=== PATIENT | male | born 1955 | race Caucasian/White ===

== ENCOUNTER 2021-12-25 19:35 | Emergency (ER) | payer MEDICARE, MEDICAID ==
[~2021-12-25] VITALS: Ht 182.9 cm; Wt 108.9 kg
--- NOTE | 2021-12-25 19:47 | NUR ---
Dr. Castillo in for [facility].
[2021-12-25] MEDS ORDERED: HYDROMORPHONE 1 MG/1 ML DISP.SYRIN IV ONE ×3 (20:00→23:00)
[2021-12-25] MEDS ORDERED: ONDANSETRON 4 MG/2 ML VIAL IV ONE (20:00)
[2021-12-25] MEDS ORDERED: IV NORMAL SALINE 1000 ML BAG IV ONE (20:00)
[2021-12-25] MEDS ORDERED: ONDANSETRON 4 MG/2 ML VIAL ONE (20:06)
[2021-12-25] MEDS ORDERED: HYDROMORPHONE 1 MG/1 ML DISP.SYRIN ONE ×3 (20:06→22:59)
[2021-12-25 20:23] LABS: HEMATOCRIT 41.6 % (36.7-47.1); MEAN CORPUSCULAR HEMOGLOBIN 28.1 uug (23.8-33.4); MEAN CORPUSCULAR VOLUME 88.9 fL (73.0-96.2); PLATELET COUNT (AUTO) 236 K/uL (152-348)
[2021-12-25 20:31] LABS: CARBON DIOXIDE 35 mmol/L (21-32); CHLORIDE 99 mmol/L (98-107); GLUCOSE 106 mg/dL (74-106); POTASSIUM 4.2 mmol/L (3.5-5.1); UREA NITROGEN, BLOOD 19 mg/dL (7-18)
[2021-12-25 20:37] LABS: ALANINE AMINOTRANSFERASE 95 U/L (16-63); ALKALINE PHOSPHATASE 99 U/L (50-136); ASPARTATE AMINOTRANSFERASE 47 U/L (15-37); BILIRUBIN,DIRECT 0.1 mg/dL (0.0-0.2); BILIRUBIN,TOTAL 0.2 mg/dL (0.2-1.0); LIPASE 67 U/L (73-393); TOTAL PROTEIN, SERUM 7.3 g/dL (6.4-8.2)
[2021-12-25 21:51] LABS: *BILIRUBIN,URIN NEGATIVE (NEGATIVE); *BLOOD, URINE 1+ (NEGATIVE); *CLARITY,URINE SLIGHTLY CLOUDY (CLEAR); *COLOR,URINE YELLOW (YELLOW); *KETONES,URINE 1+ (NEGATIVE); LEUKOCYTE ESTERASE ,URINE 1+ (NEGATIVE); NITRITE, URINE NEGATIVE (NEGATIVE); PH,URINE 5.5 (5.0-8.0); UGLUCOSE NEGATIVE (NEGATIVE)
[2021-12-25 22:38] LABS: BACTERIA,URINE NONE SEEN /HPF (NONE SEEN); RBC,URINE 50-80 /HPF (0-3); SQUAMOUS EPITHELIAL CELL,UR FEW /HPF (NONE SEEN)
[2021-12-25] MEDS ORDERED: IOHEXOL 300MG/ML 50 ML VIAL ONE (23:40)
--- NOTE | 2021-12-26 00:05 | NUR ---
call to [facility] ambulance pt will go to [facility] for a cat scan abd pelvis with contrast. eta is 30 to 45 min.
--- NOTE | 2021-12-26 01:10 | NUR ---
call to [facility] ambulance they state eta is 10 mintues.
[2021-12-26] MEDS ORDERED: HYDROMORPHONE 1 MG/1 ML DISP.SYRIN ONE (01:28)
[2021-12-26] MEDS ORDERED: HYDROMORPHONE 1 MG/1 ML DISP.SYRIN IV ONE (01:30)
--- NOTE | 2021-12-26 01:33 | NUR ---
[facility] is here [address] with emt jody and rossy. pt will go to [facility] for a cat scan as the cat scan machine does not work here.
--- NOTE | 2021-12-26 03:06 | NUR ---
pt has returned from [facility] as he had a cat scan there.
[2021-12-26] MEDS ORDERED: MAGNESIUM CITRATE 296 ML BOTTLE PO ONE (03:15)
--- NOTE | 2021-12-26 03:18 | NUR ---
urinary catheter was removed. arrangements will be made for the pt to go back to where he resides.
[2021-12-26] MEDS ORDERED: BISA-79 PO (03:20)
[2021-12-26] MEDS ORDERED: BISA10SU61 RC (03:20)
[2021-12-26] MEDS ORDERED: MAGN296S70 PO ×2 (03:20→04:03)
--- NOTE | 2021-12-26 03:22 | NUR ---
Call to Ashutosh at [facility]. pt will be going back home. discharge instructions reviewed. discussed labs and meds given. I will arrange transport and call Ashutosh back with
--- NOTE | 2021-12-26 03:53 | NUR ---
Patient discharged to home in stable condition. Written and verbal after care instructions given. Patient verbalizes understanding of instructions. Stressed follow up or return to ER for worsening s/s.
--- NOTE | 2021-12-26 04:07 | NUR ---
Patient discharged to home in stable condition. Written and verbal after care instructions given. Patient verbalizes understanding of instructions. Stressed follow up or return to ER for worsening s/s. pt transported to his assisted living by [facility] [address] with [place]. all instructions were previously review with nurse at assisted living.
[2021-12-26 04:09] VITALS: BP 110/60
== END 2021-12-26 04:11 | disposition home or self-care (01) ==
LOC: ER 19:41
DX: K59.00 Constipation, unspecified (principal); J44.9 Chronic obstructive pulmonary disease, unspecified; N31.9 Neuromuscular dysfunction of bladder, unspecified; I48.91 Unspecified atrial fibrillation; G82.20 Paraplegia, unspecified; S24.103S Unspecified injury at T7-T10 level of thoracic spinal cord, sequela; S22.068S Other fracture of T7-T8 thoracic vertebra, sequela; X58.XXXS Exposure to other specified factors, sequela
CPT/HCPCS: 74177; 99284; 96374; 96361; 96375; 80076; 80048; 81001; 82140; 82607; 83690; 83735; 85025; 87086; 87077; 36415; 93005; 74018; 96376 ×2; 83605; Q9967; J2405; J1170 ×4; J7040